=== PATIENT | female | born 1935 | race Caucasian/White ===

== ENCOUNTER 2018-06-24 09:37 | Emergency (ER) | payer MEDICARE ==
[2018-06-24 09:47] VITALS: BP 192/85
--- NOTE | 2018-06-24 10:20 | ED Physician Documentation ---
History of Present Illness - Stated complaint Stated Complaint: RASH - Chief complaint Chief Complaint: General - History obtained from History obtained from: Patient - History of Present Illness Timing: Other (1 month ago) Pain level max: 0 Pain level now: 0 - Additonal information Additional information: Patient is an 83-year-old female who complains of red streaks and itching for the past month. States it is mainly on the ankles and wrists along her hairline and her shirt collar areas. Nothing makes it better. It is itchy. No fevers. Is living in a cabin. Nothing makes it worse Review of Systems Throat: denies: Sore throat Respiratory: denies: Cough GI: denies: Abdominal Pain, Nausea, Vomiting, Diarrhea Musculoskeletal: denies: Neck pain, Back pain Neurologic: denies: Headache PD PAST MEDICAL HISTORY - Past Medical History Past Medical History: No - Past Surgical History Past Surgical History: No - Present Medications Home Medications: Ambulatory Orders Medication Instructions Recorded Confirmed Permethrin [Elimite] 60 gm TP ONCE #1 cream..g. 06/24/18 - Allergies Allergies/Adverse Reactions: Allergies Allergy/AdvReac Type Severity Reaction Status Date / Time Sulfa (Sulfonamide Allergy Unknown Verified 06/24/18 09:48 Antibiotics) - Living Situation Living Arrangement: reports: At home PD ED PE NORMAL - Vitals Vital signs reviewed: Yes - General General: Alert and oriented X 3, No acute distress - HEENT HEENT: Moist mucous membranes - Neck Neck: Supple, no meningeal sign - Cardiac Cardiac: RRR, Strong equal pulses - Respiratory Respiratory: No respiratory distress, Clear bilaterally - Abdomen Abdomen: Soft, Non tender - Derm Derm: Warm and dry, Other (Small papules and subcutaneous erythematous tracks along the wrist, ankles hairline along the forehead and neck. No abscesses. No pustules or vesicles.) - Neuro Neuro: Alert and oriented X 3 Results - Vitals Vitals: Vital Signs - 24 hr 06/24/18 09:43 Temperature 36.5 C Heart Rate 74 Respiratory 20 Rate Blood Pressure 192/85 H O2 Saturation 98 Oxygen O2 Source Room air PD MEDICAL DECISION MAKING - ED course Complexity details: considered differential, d/w patient ED course: Patient is an 83-year-old female with what appears to be a likely scabies infection. Will place on permethrin and follow-up with her doctor. Patient counseled regarding signs and symptoms for which I believe and urgent re- evaluation would be necessary. Patient with good understanding of and agreement to plan and is comfortable going home at this time This document was made in part using voice recognition software. While efforts are made to proofread this document, sound alike and grammatical errors may occur. Departure - Departure Disposition: Home, Self Care Clinical Impression: Scabies Condition: Good Instructions: ED Scabies Follow-Up: your,doctor in 2 weeks if not better [Other] Prescriptions: Permethrin [Elimite] 60 gm TP ONCE #1 cream..g. Comments: Use the medications as prescribed. Return if you worsen. Follow-up with your doctor.
== END 2018-06-24 10:22 | disposition home or self-care (01) ==
LOC: ED 09:37
DX: B86 Scabies (principal)
CPT/HCPCS: 99283

== ENCOUNTER 2021-05-30 07:00 | Outpatient (CLI) | payer MEDICARE | END 2021-05-30 23:59 | disposition home or self-care (01) | LOC: LAB 07:00 | PROVIDERS: ATTEND Physician Assistant Medical | DX: M54.5 Low back pain (principal) | CPT/HCPCS: 87077; 87086; 87181 ==

== ENCOUNTER 2022-03-09 19:05 | Emergency (ER) | payer MEDICARE, OTHER ==
[2022-03-09 19:14] VITALS: BP 183/92
--- NOTE | 2022-03-09 19:17 | ED Physician Documentation ---
History of Present Illness - Stated complaint Stated Complaint: BODY ACHES/BACK PX - Chief complaint Chief Complaint: General - History obtained from History obtained from: Patient, Family (family at bedside) - History of Present Illness Pain level now: 3 Improved by: no ameliorating factors Worsened by: no exacerbating factors - Additonal information Additional information: c/o few days of generalized myalgias and generalized headache, fatigue, cough. She also notes dyspnea and dysuria but these are chronic; she says she was recently evaluated outpatient by her primary care provider for recurrent dysuria and was prescribed estrogen cream (which she says she is not using) and that she tested negative for UTI. Unsure if fevers at home, did not check but patient says she felt like she had a fever; felt cold and got into hot shower to warm up, and has been having sweats/chills (although she also seems to indicate the sweats/chills are of a chronic/recurrent nature and not acute). Sick contact in that daughter in ED at bedside says she had similar symptoms (myalgias, headache, fatigue) recently Review of Systems Constitutional: reports: Chills, Myalgias, Fatigue, Sweats Cardiac: denies: Chest pain / pressure Respiratory: reports: Dyspnea, Cough. denies: Wheezing GI: denies: Abdominal Pain : reports: Dysuria (chronic). denies: Frequency Neurologic: reports: Generalized weakness, Headache. denies: Focal weakness, Numbness PD PAST MEDICAL HISTORY - Past Medical History Past Medical History: No - Past Surgical History Past Surgical History: No - Present Medications Home Medications: Ambulatory Orders Medication Instructions Recorded Confirmed Permethrin [Elimite] 60 gm TP ONCE #1 cream..g. 06/24/18 - Allergies Allergies/Adverse Reactions: Allergies Allergy/AdvReac Type Severity Reaction Status Date / Time Sulfa (Sulfonamide Allergy Unknown Verified 03/09/22 19:15 Antibiotics) - Living Situation Living Situation: reports: With family Living Arrangement: reports: At home - Social History Does the pt smoke?: No Smoking Status: Never smoker Does the pt drink ETOH?: No Does the pt have substance abuse?: No - Immunizations Immunizations are current?: Yes PD ED PE NORMAL - Vitals Vital signs reviewed: Yes - General General: Alert and oriented X 3, No acute distress, Well developed/nourished - HEENT HEENT: Moist mucous membranes, Pharynx benign - Neck Neck: Supple, no meningeal sign - Cardiac Cardiac: RRR - Respiratory Respiratory: No respiratory distress, Clear bilaterally - Abdomen Abdomen: Soft, Non tender - Derm Derm: Normal color, Warm and dry PD ED PE EXPANDED - Cardiac Cardiac: Murmur Present (2/6 SEAN left 2nd ICS) Results - Vitals Vitals: Vital Signs - 24 hr 03/09/22 03/09/22 03/09/22 19:09 21:14 21:48 Temperature 37.1 C Heart Rate 86 85 91 Respiratory 16 26 H Rate Blood Pressure 183/92 H O2 Saturation 97 100 97 Oxygen O2 Source Room air - Labs Labs: Laboratory Tests 03/09/22 03/09/22 19:55 19:55 Nasal Adenovirus (PCR) NOT DETECTED Nasal B. parapertussis DNA (PCR) NOT DETECTED Nasal Coronavir 229E PCR NOT DETECTED Nasal Coronavir HKU1 PCR NOT DETECTED Nasal Coronavir NL63 PCR NOT DETECTED Nasal Coronavir OC43 PCR NOT DETECTED Nasal Enterovir/Rhinovir PCR NOT DETECTED Nasal Influenza B PCR NOT DETECTED Nasal Influenza A PCR NOT DETECTED Nasal Parainfluen 1 PCR NOT DETECTED Nasal Parainfluen 2 PCR NOT DETECTED Nasal Parainfluen 3 PCR NOT DETECTED Nasal Parainfluen 4 PCR NOT DETECTED Nasal RSV (PCR) NOT DETECTED Nasal B.pertussis DNA PCR NOT DETECTED Nasal C.pneumoniae (PCR) NOT DETECTED Jm Human Metapneumo PCR NOT DETECTED Nasal M.pneumoniae (PCR) NOT DETECTED Nasal SARS-CoV-2 (PCR) DETECTED A Group A Strep Rapid Negative - Rads (name of study) chest xray Radiology: Prelim report reviewed, See rad report PD MEDICAL DECISION MAKING - ED course Complexity details: reviewed results, re-evaluated patient, considered differential, d/w patient, d/w family ED course: No concerning findings on chest xray and patient has 97% pulse ox on room air and NAD, breathing comfortably through nose (closed mouth) and speaking in full sentences. POSITIVE for COVID, given paxlovid. Results d/w patient, d/c home after return precautions discussed Departure - Departure Disposition: Home, Self Care Clinical Impression: COVID-19 Condition: Good Instructions: ED Viral Syndrome Follow-Up: Brandyn Zacarias MD [Primary Care Provider] - Comments: Take the antiviral medications as directed (Paxlovid; a five-day supply, which is the complete course of medication, has been given to you in the ER tonight to take home). Follow the CDC guidelines for isolation. These can be found by typing "CDC covid isolation" into [employer] and then clicking on the link that begins with https://www.cdc.gov). This page will give you means to determine when you can end your isolation. Discharge Date/Time: 03/09/22 21:48
[2022-03-09 20:11] LABS: RAPID STREP SCREEN Negative (Negative)
--- NOTE | 2022-03-09 20:31 | XRAY Report ---
PROCEDURE: Chest 2 View X-Ray INDICATIONS: cough, dyspnea TECHNIQUE: 2 views of the chest. COMPARISON: None. FINDINGS: Surgical changes and devices: None. Lungs and pleura: There is hyperinflation of the lungs with flattening of the hemidiaphragms compati ble with COPD. No definite acute airspace opacities. No pleural effusions or pneumothorax. Mediastinum: Mediastinal contours are normal. Heart size is normal. Bones and chest wall: No suspicious bony abnormalities. Soft tissues appear unremarkable. IMPRESSION: 1. No definite evidence of pneumonia. 2. Findings compatible with COPD. Reviewed by: Titus Segovia MD on 03/09/2022 8:29 PM PDT Approved by: Titus Segovia MD on 03/09/2022 8:29 PM PDT Station ID: [id number]
[2022-03-09 20:50] LABS: CORONAVIRUS 229E-RESP PCR NOT DETECTED; CORONAVIRUS HKU1-RESP PCR NOT DETECTED; CORONAVIRUS NL63-RESP PCR NOT DETECTED; CORONAVIRUS OC43-RESP PCR NOT DETECTED
[2022-03-09 20:52] LABS: B. PARAPERTUSSIS- RESP PCR PAN NOT DETECTED; B. PERTUSSIS- RESP PCR PANEL NOT DETECTED; C. PNEUMONIAE- RESP PCR PANEL NOT DETECTED; HUMAN METAPNEUMOVIRUS NOT DETECTED; INFLUENZA A- RESP PCR PANEL NOT DETECTED; INFLUENZA B - RESP PCR PANEL NOT DETECTED; M. PNEUMONIAE- RESP PCR PANEL NOT DETECTED; PARAINFLUENZA VIRUS 1 NOT DETECTED; PARAINFLUENZA VIRUS 2 NOT DETECTED; PARAINFLUENZA VIRUS 3 NOT DETECTED; PARAINFLUENZA VIRUS 4 NOT DETECTED; RHINOVIRUS/ENTEROVIRUS NOT DETECTED; RSV- RESP PCR PANEL NOT DETECTED; SARS-CoV-2 -RESP PCR PANEL DETECTED
[2022-03-09] MEDS ORDERED: NIRMATRELVIR/RITONAVIR PREPACK PO STA (21:16)
[2022-03-09] MEDS ORDERED: IBUPROFEN 400 MG TABLET PO STA (21:23)
== END 2022-03-09 21:48 | disposition home or self-care (01) ==
LOC: ED 19:05
DX: U07.1 COVID-19 (principal)
CPT/HCPCS: 71046; 87070; 87430; 87633; 99282; 99284; A9270; J3490

== ENCOUNTER 2022-12-27 12:47 | Emergency (ER) | payer MEDICARE, OTHER ==
--- NOTE | 2022-12-27 13:31 | ED Physician Documentation ---
PD HPI ABD PAIN - Stated complaint Stated Complaint: ABD PX/NAUSEA - Chief complaint Chief Complaint: Abd Pain - History obtained from History obtained from: Patient - Additional information Additional information: Is an 87-year-old female presenting for evaluation of burning pain in her stomach that radiates into her chest that is been present for the past 7 to 8 days. Patient reports a history of GERD and used to be on Prilosec but has not been using it recently. She did take 1 dose without any improvement in her symptoms. She denies any change to her diet. She did try a dose of Tums which also did not help her. She denies radiation to the pain elsewhere.Her pain is worse when laying down at night or after eating.She otherwise denies pain elsewhere in the chest or abdomen. SheDenies shortness of breath, nausea, vomiting, diarrhea.She denies any known history of coronary artery disease and does not take any medications for blood pressure, diabetes or hyperlipidemia.He has a prior history of an appendectomy. Her last bowel movement was yesterday. Review of Systems Constitutional: denies: Fever Cardiac: denies: Chest pain / pressure Respiratory: denies: Dyspnea GI: reports: Abdominal Pain. denies: Nausea, Vomiting, Diarrhea : reports: Dysuria Musculoskeletal: denies: Back pain Neurologic: denies: Headache PD PAST MEDICAL HISTORY - Past Medical History Musculoskeletal: Osteoarthritis - Past Surgical History Past Surgical History: No - Present Medications Home Medications: Ambulatory Orders Medication Instructions Recorded Confirmed Permethrin [Elimite] 60 gm TP ONCE #1 cream..g. 06/24/18 Nitrofurantoin [Macrobid] 100 mg PO BID #10 cap 04/19/22 - Allergies Allergies/Adverse Reactions: Allergies Allergy/AdvReac Type Severity Reaction Status Date / Time Sulfa (Sulfonamide Allergy Unknown Verified 12/27/22 13:13 Antibiotics) - Social History Does the pt smoke?: No Smoking Status: Never smoker Does the pt drink ETOH?: No Does the pt have substance abuse?: No - Immunizations Immunizations are current?: Yes PD ED PE NORMAL - General General: Alert and oriented X 3, No acute distress, Well developed/nourished - HEENT HEENT: Atraumatic - Neck Neck: Supple, no meningeal sign - Cardiac Cardiac: RRR, No murmur - Respiratory Respiratory: No respiratory distress, Clear bilaterally - Abdomen Abdomen: Soft, Non tender, Non distended - Derm Derm: Warm and dry - Neuro Neuro: Normal speech Results - Vitals Vitals: Vital Signs - 24 hr 12/27/22 12/27/22 12/27/22 13:07 13:55 15:16 Temperature 36.5 C Heart Rate 83 69 70 Respiratory 16 16 18 Rate Blood Pressure 180/125 H 200/82 H 182/100 H O2 Saturation 97 100 98 Oxygen O2 Source Room air - EKG (time done) 1343 EKG releavant findings:: EKG personally interpreted by author of this note. Relevant findings are: Rate 68, NSR, no STEMI; [id number] Rate: Rate (enter#) (68) Rhythm: NSR Intervals: No: Prolonged QT Ischemia: No: ST elevation c/w ischemia - Labs Labs: Laboratory Tests 12/27/22 12/27/22 12/27/22 13:34 13:34 13:34 WBC 4.7 L RBC 4.71 Hgb 13.4 Hct 42.4 MCV 90.0 MCH 28.5 MCHC 31.6 L RDW 13.4 Plt Count 201 MPV 9.2 Neut # (Auto) 3.0 Lymph # (Auto) 1.2 L [place] # (Auto) 0.4 Eos # (Auto) 0.2 Baso # (Auto) 0.0 Absolute Nucleated RBC 0.00 Nucleated RBC % 0.0 Sodium 140 Potassium 4.0 Chloride 106 Carbon Dioxide 26 Anion Gap 8.0 BUN 18 Creatinine 0.8 Estimated GFR (MDRD) 68 L Glucose 95 Calcium 9.1 Total Bilirubin 0.6 AST 20 ALT 16 Alkaline Phosphatase 67 Troponin I High Sens 13.3 Total Protein 6.8 Albumin 3.8 Globulin 3.0 Albumin/Globulin Ratio 1.3 Lipase 35 Urine Color Urine Clarity Urine pH Ur Specific [place] Urine Protein Urine Glucose (UA) Urine Ketones Urine Occult Blood Urine Nitrite Urine Bilirubin Urine Urobilinogen Ur Leukocyte Esterase Ur Microscopic Review Urine Culture Comments 12/27/22 15:03 WBC RBC Hgb Hct MCV MCH MCHC RDW Plt Count MPV Neut # (Auto) Lymph # (Auto) [place] # (Auto) Eos # (Auto) Baso # (Auto) Absolute Nucleated RBC Nucleated RBC % Sodium Potassium Chloride Carbon Dioxide Anion Gap BUN Creatinine Estimated GFR (MDRD) Glucose Calcium Total Bilirubin AST ALT Alkaline Phosphatase Troponin I High Sens Total Protein Albumin Globulin Albumin/Globulin Ratio Lipase Urine Color YELLOW Urine Clarity CLEAR Urine pH 6.0 Ur Specific [place] 1.025 Urine Protein NEGATIVE Urine Glucose (UA) NEGATIVE Urine Ketones NEGATIVE Urine Occult Blood NEGATIVE Urine Nitrite NEGATIVE Urine Bilirubin NEGATIVE Urine Urobilinogen 0.2 (NORMAL) Ur Leukocyte Esterase NEGATIVE Ur Microscopic Review NOT INDICATED Urine Culture Comments NOT INDICATED PD Medical Decision Making - ED course Complexity details: reviewed results, re-evaluated patient, d/w patient, d/w family ED course: Pt with epigastric pain. BP elevated but other VS stable. Workup included CBC, CMP, lipase, troponin, EKG and chest XR which I reviewed and without significant findings. Abdominal exam is benign. UA negative for infection. Pt feeling better after GI cocktail. Given duration of symptoms of days with negative troponin and pain worse with laying flat and eating, feel ACS is less likely. Pt feels better and would like to go home with plan to continue Prilosec. Daughter also at bedside. Understand need for close follow up with PCP and concerning symptoms to return for. Departure - Departure Disposition: 01 Home, Self Care Clinical Impression: Epigastric abdominal pain, Heartburn symptom, Elevated blood pressure reading Condition: Stable Instructions: ED GERD Comments: Your electrolytes and testing for your heart today are normal. Your urine does not show any infection. Your symptoms could be related to heartburn I would rec ommend continuing with Prilosec and having close follow-up with your PCP. Your blood pressure has been quite elevated today. We do not typically start blood pressure medication And thus you are having certain symptoms or abnormalities on your lab testing. Please call Dr. Zacarias's office on Thursday for close follow- up. Discharge Date/Time: 12/27/22 15:36
[2022-12-27 13:39] LABS: BASOPHILS % (AUTO) 0.4 %; EOSINOPHILS # (AUTO) 0.2 10^3/uL (0.0-0.7); EOSINOPHILS % (AUTO) 3.2 %; HCT - HEMATOCRIT 42.4 % (37.0-47.0); HGB - HEMOGLOBIN 13.4 g/dL (12.0-16.0); LYMPHOCYTES # (AUTO) 1.2 10^3/uL (1.5-3.5); MEAN CORPUSCULAR HEMOGLOBIN 28.5 pg (27.0-31.0); MEAN CORPUSCULAR HGB CONC 31.6 g/dL (32.0-36.0); MEAN PLATELET VOLUME 9.2 fL (7.9-10.8); MONOCYTES # (AUTO) 0.4 10^3/uL (0.0-1.0); MONOCYTES % (AUTO) 7.9 %; NEUTROPHILS % (AUTO) 63.3 %; PLT - PLATELET COUNT 201 10^3/uL (130-450); RED BLOOD COUNT 4.71 10^6/uL (4.20-5.40); RED CELL DISTRIBUTION WIDTH 13.4 % (12.0-15.0); WHITE BLOOD COUNT 4.7 x10^3/uL (4.8-10.8)
--- NOTE | 2022-12-27 13:44 | XRAY Report ---
PROCEDURE: Chest 1 View X-Ray INDICATIONS: heartburn TECHNIQUE: One view of the chest was acquired. COMPARISON: Chest x-ray 03/09/2022 FINDINGS: Surgical changes and devices: None. Lungs and pleura: No pleural effusions or pneumothorax. Lungs are clear. Mediastinum: Mediastinal contours appear normal. Heart size is mildly enlarged. Bones and chest wall: No suspicious bony lesions. Overlying soft tissues appear unremarkable. IMPRESSION: No acute pulmonary process. Reviewed by: Sonja Alvarenga MD on 12/27/2022 1:43 PM PDT Approved by: Sonja Alvarenga MD on 12/27/2022 1:43 PM PDT Station ID: [id number]
[2022-12-27 14:03] LABS: ALBUMIN 3.8 g/dL (3.2-5.5); ALBUMIN/GLOBULIN RATIO 1.3 (1.0-2.2); BILIRUBIN,TOTAL 0.6 mg/dL (0.2-1.0); CALCIUM 9.1 mg/dL (8.5-10.3); CREATININE 0.8 mg/dL (0.4-1.0); TOTAL PROTEIN 6.8 g/dL (6.7-8.2)
[2022-12-27] MEDS: MAG HYDROX/AL HYDROX/SIMETH 30 ML UDC PO STA (14:36)
[2022-12-27] MEDS: LIDOCAINE VISCOUS 2% 15 ML UDC MM STA (14:36)
[2022-12-27 15:10] LABS: BILIRUBIN,URINE NEGATIVE (NEGATIVE); CLARITY,URINE CLEAR (CLEAR); GLUCOSE, URINE (UA) NEGATIVE (NEGATIVE); KETONES,URINE (UA) NEGATIVE (NEGATIVE); LEUKOCYTE ESTERASE, URINE NEGATIVE (NEGATIVE); NITRITE,URINE NEGATIVE (NEGATIVE); OCCULT BLOOD,URINE NEGATIVE (NEGATIVE); PROTEIN,URINE NEGATIVE (NEGATIVE); UROBILINOGEN,URINE 0.2 (NORMAL) E.U./dL (NORMAL)
[2022-12-27 15:17] VITALS: BP 182/100
== END 2022-12-27 15:36 | disposition home or self-care (01) ==
LOC: ED 12:47
DX: R10.13 Epigastric pain (principal); R03.0 Elevated blood-pressure reading, without diagnosis of hypertension; R30.0 Dysuria
CPT/HCPCS: 36415; 71045; 80053; 81003; 83690; 84484; 85025; 93005; 99283; 99284; A9270; 81001; 87086

== ENCOUNTER 2023-02-17 13:30 | Outpatient (CLI) | payer MEDICARE, OTHER | END 2023-02-17 23:59 | disposition EMS.NT | LOC: EMS 13:30 | DX: R30.9 Painful micturition, unspecified (principal) ==

== ENCOUNTER 2023-02-17 14:36 | Emergency (ER) | payer MEDICARE, OTHER ==
--- NOTE | 2023-02-17 15:04 | ED Physician Documentation ---
History of Present Illness - Stated complaint Stated Complaint: FEMALE - Chief complaint Chief Complaint: UTI - History obtained from History obtained from: Patient - Additonal information Additional information: 88-year-old female with past medical history of recurrent dysuria symptoms though apparently frequently does not have UTI on lab, presents with dysuria. She states symptoms occur every 6 months to a year. She states that they often tell her she did not have an infection but she states she gets relief when she is put on antibiotics. She does have a history of bladder prolapse and it was recommended in the past that she undergo a sling procedure but she did not want to do so, she does plan to follow-up with her loan originator about this however. She has been experiencing dysuria for the last couple of days with some mild increasing confusion, she has not had any flank pain, no fever or chills, no nausea or vomiting. She is tolerating p.o. well and states she drinks a copious amount of water throughout the day. Review of Systems Constitutional: reports: Reviewed and negative Eyes: reports: Reviewed and negative Ears: reports: Reviewed and negative Nose: reports: Reviewed and negative Throat: reports: Reviewed and negative Cardiac: reports: Reviewed and negative Respiratory: reports: Reviewed and negative GI: reports: Reviewed and negative : reports: Dysuria, Frequency. denies: Hesitancy, Unable to Void, Incontinent, Hematuria, Discharge Skin: reports: Reviewed and negative Musculoskeletal: reports: Reviewed and negative Neurologic: reports: Reviewed and negative PD PAST MEDICAL HISTORY - Past Medical History Cardiovascular: Hypertension Musculoskeletal: Osteoarthritis - Past Surgical History Past Surgical History: No - Present Medications Home Medications: Ambulatory Orders Medication Instructions Recorded Confirmed Permethrin [Elimite] 60 gm TP ONCE #1 cream..g. 06/24/18 Nitrofurantoin [Macrobid] 100 mg PO BID #10 cap 04/19/22 Phenazopyridine HCl [Pyridium] 200 mg PO TID PRN #6 tablet 02/17/23 cephALEXin [Keflex] 500 mg PO BID 3 Days #6 cap 02/17/23 - Allergies Allergies/Adverse Reactions: Allergies Allergy/AdvReac Type Severity Reaction Status Date / Time Sulfa (Sulfonamide Allergy Unknown Verified 12/27/22 13:13 Antibiotics) - Social History Does the pt smoke?: No Smoking Status: Never smoker Does the pt drink ETOH?: No Does the pt have substance abuse?: No - Immunizations Immunizations are current?: Yes Results - Vitals Vitals: Vital Signs - 24 hr 02/17/23 14:44 Temperature 36.7 C Heart Rate 66 Respiratory 18 Rate Blood Pressure 213/63 H O2 Saturation 99 Oxygen O2 Source Room air - Labs Labs: Laboratory Tests 02/17/23 02/17/23 02/17/23 15:07 15:07 15:07 WBC 6.6 RBC 4.81 Hgb 13.9 Hct 43.5 MCV 90.4 MCH 28.9 MCHC 32.0 RDW 13.4 Plt Count 217 MPV 9.1 Neut # (Auto) 4.6 Lymph # (Auto) 1.2 L [place] # (Auto) 0.5 Eos # (Auto) 0.2 Baso # (Auto) 0.0 Absolute Nucleated RBC 0.00 Nucleated RBC % 0.0 Sodium 140 Potassium 4.1 Chloride 104 Carbon Dioxide 28 Anion Gap 8.0 BUN 20 Creatinine 1.0 Estimated GFR (MDRD) 52 L Glucose 97 Calcium 9.1 Total Bilirubin 0.6 AST 22 ALT 20 Alkaline Phosphatase 80 Total Protein 7.2 Albumin 4.0 Globulin 3.2 Albumin/Globulin Ratio 1.3 Lipase 42 Urine Color YELLOW Urine Clarity CLEAR Urine pH 7.0 Ur Specific [place] 1.020 Urine Protein NEGATIVE Urine Glucose (UA) NEGATIVE Urine Ketones NEGATIVE Urine Occult Blood NEGATIVE Urine Nitrite NEGATIVE Urine Bilirubin NEGATIVE Urine Urobilinogen 0.2 (NORMAL) Ur Leukocyte Esterase NEGATIVE Ur Microscopic Review NOT INDICATED Urine Culture Comments NOT INDICATED PD Medical Decision Making - ED course Complexity details: reviewed old records, reviewed results, re-evaluated patient, considered differential, d/w patient, d/w family ED course: 88-year-old female presents with dysuria, Nicko and concern for UTI. She has had similar symptoms every 6 months or so for the last number of years. It sounds as though she often has a negative urinalysis but believes that she gets relief when she is started on antibiotics. She is well-appearing here on physical exam with stable vital signs, she has no CVAT or reproducible abdominal tenderness. Her labs are stable including CBC, CMP and urinalysis. Urinalysis not suggestive of infection however given patient's symptoms, I am going to treat with a short course of Keflex and Pyridium. Her symptoms may be due to a mild cystitis or overactive bladder, or due to her bladder prolapse. She was advised to follow-up with her PCP and loan originator for these issues, she may benefit from being on some medication for overactive bladder and may benefit from a pessary or other treatment for her bladder prolapse. At this time she does not require hospitalization and is stable for discharge home. She was encouraged to follow-up however if she had new or worsening symptoms. Departure - Departure Disposition: Home, Self Care Clinical Impression: Cystitis Condition: Good Instructions: ED UTI Cystitis Female Prescriptions: cephALEXin [Keflex] 500 mg PO BID 3 Days #6 cap Phenazopyridine HCl [Pyridium] 200 mg PO TID PRN #6 tablet PRN Reason: dysuria Comments: Your labs today are reassuring, you do not appear dehydrated and your kidney function is normal. There is no obvious sign of infection on your urinalysis today however I think reasonable to treat given your symptoms. I have given you 3 days of antibiotic called Keflex as well as a medication to reduce bladder spasms called Pyridium. Please continue to drink plenty of water and follow-up with your primary doctor if you have ongoing Symptoms or return to the ER if worsening. I do think it is a good idea to see a loan originator as we discussed for your bladder prolapse. This can also cause The symptoms you are experiencing today. Medications were sent to [facility] in [place].
[2023-02-17 15:14] LABS: BILIRUBIN,URINE NEGATIVE (NEGATIVE); GLUCOSE, URINE (UA) NEGATIVE (NEGATIVE); KETONES,URINE (UA) NEGATIVE (NEGATIVE); LEUKOCYTE ESTERASE, URINE NEGATIVE (NEGATIVE); NITRITE,URINE NEGATIVE (NEGATIVE); OCCULT BLOOD,URINE NEGATIVE (NEGATIVE); PROTEIN,URINE NEGATIVE (NEGATIVE); UROBILINOGEN,URINE 0.2 (NORMAL) E.U./dL (NORMAL)
[2023-02-17 15:17] LABS: CLARITY,URINE CLEAR (CLEAR)
[2023-02-17 15:19] LABS: BASOPHILS % (AUTO) 0.3 %; EOSINOPHILS # (AUTO) 0.2 10^3/uL (0.0-0.7); EOSINOPHILS % (AUTO) 3.4 %; HCT - HEMATOCRIT 43.5 % (37.0-47.0); HGB - HEMOGLOBIN 13.9 g/dL (12.0-16.0); LYMPHOCYTES # (AUTO) 1.2 10^3/uL (1.5-3.5); LYMPHOCYTES % (AUTO) 18.9 %; MEAN CORPUSCULAR HEMOGLOBIN 28.9 pg (27.0-31.0); MEAN CORPUSCULAR VOLUME 90.4 fL (81.0-99.0); MEAN PLATELET VOLUME 9.1 fL (7.9-10.8); MONOCYTES # (AUTO) 0.5 10^3/uL (0.0-1.0); NEUTROPHILS # (AUTO) 4.6 10^3/uL (1.5-6.6); NEUTROPHILS % (AUTO) 69.9 %; PLT - PLATELET COUNT 217 10^3/uL (130-450); RED BLOOD COUNT 4.81 10^6/uL (4.20-5.40); RED CELL DISTRIBUTION WIDTH 13.4 % (12.0-15.0); WHITE BLOOD COUNT 6.6 x10^3/uL (4.8-10.8)
[2023-02-17 15:24] LABS: ALBUMIN/GLOBULIN RATIO 1.3 (1.0-2.2); BILIRUBIN,TOTAL 0.6 mg/dL (0.2-1.0); CALCIUM 9.1 mg/dL (8.5-10.3); POTASSIUM 4.1 mmol/L (3.5-5.0); TOTAL PROTEIN 7.2 g/dL (6.7-8.2)
[2023-02-17 16:09] VITALS: BP 188/81
== END 2023-02-17 16:14 | disposition home or self-care (01) ==
LOC: ED 14:36
DX: N30.90 Cystitis, unspecified without hematuria (principal); I10 Essential (primary) hypertension
CPT/HCPCS: 36415; 80053; 81001; 81003; 83690; 85025; 87086; 99283; 99284

== ENCOUNTER 2023-03-29 17:43 | Outpatient (CLI) | payer MEDICARE, OTHER | END 2023-03-29 23:59 | disposition EMS.NT | LOC: EMS 17:43 | DX: M25.561 Pain in right knee (principal); R41.0 Disorientation, unspecified ==

== ENCOUNTER 2024-01-18 12:25 | Emergency (ER) | payer MEDICARE, OTHER ==
[2024-01-18 14:36] VITALS: BP 192/60; O2SAT 96
--- NOTE | 2024-01-18 14:38 | CT Report ---
PROCEDURE: Chest WO INDICATIONS: fall, R rib pain TECHNIQUE: A CT scan of the chest was performed. Intravenous contrast media was not administered. Images were re corded and evaluated at appropriate window settings. Reformats: axial MIP of the chest, coronal and s agittal. For radiation dose reduction, the following was used: automated exposure control, adjustment of mA and/or kV according to patient size. COMPARISON: Radiograph 12/27/2022 FINDINGS: Image quality: Diagnostic Lungs and pleura:Moderate emphysematous changes. Scattered scarring and atelectasis. No dense airspac e disease. No pleural effusions. No pneumothorax. 8 mm nodular opacity with a central cavitation vers us central emphysema is seen at the left apex (/) another nodule is seen in the medial right upper lobe measuring 9 to 10 mm (7/40). Mediastinum, heart, and esophagus: No evidence of mediastinal hematoma. No pericardial effusion. Mild distal esophageal wall thickening, nonspecific. There are mitral annular, atherosclerotic, and coron hakan calcifications. No pathologic lymph nodes by size criteria. Chest wall and thyroid: Unremarkable Upper abdomen: No gross abnormality on these noncontrast images Bones: Possible buckling of the anterolateral third and fourth ribs on the right. No displaced rib fr acture are identified. Degenerative changes are present. IMPRESSION: No displaced rib fracture. Possible nondisplaced buckling of the third and fourth ribs on the right. There are degenerative spine changes. No pneumothorax. No significant intrathoracic traumatic injury on this noncontrast study. Multiple lung nodules as described above measuring up to 10 mm in the medial left upper lobe. Conside r 3 month follow-up given patient's presumed risk factors (there is moderate emphysema.). Other findings above. Reviewed by: Trell Kim MD on 01/18/2024 2:36 PM PDT Approved by: Trell Kim MD on 01/18/2024 2:36 PM PDT Station ID: [id number]
--- NOTE | 2024-01-18 14:41 | CT Report ---
PROCEDURE: Pelvis WO INDICATIONS: fall, R hip/pelvis pain TECHNIQUE: Noncontrast 3 mm axial sections acquired through the bony pelvis, with coronal and sagittal reformatt ing. For radiation dose reduction, the following was used: automated exposure control, adjustment of mA and/or kV according to patient size. COMPARISON: None. FINDINGS: Image quality: Diagnostic Bones: Left hip arthroplasty. There is surrounding metallic artifact. Moderate right hip degenerative changes. There is calcific tendinopathy. The pelvic ring appears intact. Sacroiliac and lower lumbar degenerative changes are partially seen. No acute displaced fracture. No pubic diastases. No disloca tion. Soft tissues: Intrapelvic structures not well assessed on this noncontrast nondedicated study. There are colonic diverticula. Bladder is distended. The uterus is absent. No pathologic ascites/hemoperito neum in the [id number]. IMPRESSION: Moderate right hip degenerative changes. No acute displaced fracture or dislocation. Left hip arthrop lasty is seen. Other findings above. If there is high concern for further derangement, consider MRI evaluation. Reviewed by: Terll Kim MD on 01/18/2024 2:39 PM PDT Approved by: Trell Kim MD on 01/18/2024 2:39 PM PDT Station ID: [id number]
--- NOTE | 2024-01-18 14:57 | ED Physician Documentation ---
History of Present Illness - Stated complaint Stated Complaint: GLF/HIP PX - Chief complaint Chief Complaint: Trauma Ext - History obtained from History obtained from: Patient, Family, EMS - History of Present Illness Timing: Yesterday - Additonal information Additional information: Patient is an 89-year-old female who has a history of dementia, she lives at a nursing facility. She fell yesterday, did not have any injuries. She fell again last night and again had no injuries. Today she stated that her right ribs and right hip were hurting. She was still able to walk. They gave her Tylenol but she said that she was still having pain so she was brought into the emergency department with her daughter. Patient is unable to give a number of pain here. No head injury on either fall. Worse with movement, better with rest. Review of Systems Unable to obtain: Dementia PD PAST MEDICAL HISTORY - Past Medical History Past Medical History: Yes Cardiovascular: Hypertension Neuro: Dementia Musculoskeletal: Osteoarthritis - Past Surgical History Past Surgical History: No - Allergies Allergies/Adverse Reactions: Allergies Allergy/AdvReac Type Severity Reaction Status Date / Time Sulfa (Sulfonamide Allergy Unknown Verified 01/18/24 12:33 Antibiotics) - Social History Does the pt smoke?: No Smoking Status: Never smoker Does the pt drink ETOH?: No Does the pt have substance abuse?: No - Immunizations Immunizations are current?: Yes PD ED PE NORMAL - Vitals Vital signs reviewed: Yes - General General: No acute distress, Well developed/nourished, Other (Alert, oriented to person and place, not to time) - HEENT HEENT: Atraumatic, PERRL, EOMI, Moist mucous membranes, Pharynx benign - Neck Neck: Supple, no meningeal sign, No bony TTP - Cardiac Cardiac: RRR, Strong equal pulses - Respiratory Respiratory: No respiratory distress, Clear bilaterally, Other (TTP R ribs posterolateral 6-8, no crepitus. no ecchymosis.) - Abdomen Abdomen: Soft, Non tender, Non distended - Back Back: No spinal TTP (No midline tenderness to palpation or percussion. No step- off or deformity.) - Derm Derm: Warm and dry - Extremities Extremities: No deformity, Other (Mild tenderness to palpation over the right hip, greater trochanter area. Has mild pain with range of motion of the right hip. Left hip is normal. No deformity. No external rotation or shortening of the right leg. Neurovascular intact.) - Neuro Neuro: Other (alert, at mental baseline) Eye Opening: Spontaneous Motor: Obeys Commands Verbal: Confused GCS Score: 14 - Psych Psych: Normal mood, Normal affect Results - Vitals Vitals: Vital Signs - 24 hr 01/18/24 01/18/24 12:35 14:28 Temperature 36.1 C L 36.5 C Heart Rate 72 75 Respiratory 14 16 Rate Blood Pressure 184/81 H 192/60 H O2 Saturation 98 96 Oxygen O2 Source Room air - Rads (name of study) chest CT Relevant Findings:: Final report received, See rad report pelvis CT Relevant Findings:: Final report received, See rad report PD Medical Decision Making - ED course Complexity details: reviewed results, re-evaluated patient, considered differential, d/w patient, d/w family ED course: 89-year-old female status post a fall yesterday at her shelter. She has dementia. She is mainly complaining of right rib pain and right hip pain. No acute findings on CT scan of either site. Ambulating well here. Pain well- controlled with Tylenol. No head or neck pain. Did not strike her head on either fall. Not on blood thinners. No indication for further workup at this time. Family counseled regarding signs and symptoms for which I believe and urgent re-evaluation would be necessary. Family with good understanding of and agreement to plan and is comfortable going home at this time This document was made in part using voice recognition software. While efforts are made to proofread this document, sound alike and grammatical errors may occur. Departure - Departure Disposition: 01 Home, Self Care Clinical Impression: Rib pain on right side, Fall from ground level Condition: Good Instructions: ED Mechanical Fall, ED Contusion Rib Follow-Up: Brandyn Zacarias MD [Primary Care Provider] - Comments: Please follow-up with your doctor for further care. Please return if you worsen. Your CT scans do not show any evidence of acute traumatic injuries. You can use Tylenol as needed for pain. A CT scan of your chest and pelvis was performed today. The CT scan of your chest does show some lung nodules in the left upper lobe. It is recommended that you have a 3-month follow-up with your doctor regarding this. Forms: PCP List Discharge Date/Time: 01/18/24 15:15
[2024-01-18] MEDS: ACETAMINOPHEN 325 MG TABLET PO STA (15:13)
== END 2024-01-18 15:15 | disposition home or self-care (01) ==
LOC: EDUNIT# → ED 12:25
DX: M25.551 Pain in right hip (principal); R07.81 Pleurodynia; W18.30XA Fall on same level, unspecified, initial encounter; Y92.129 Unspecified place in nursing home as the place of occurrence of the external cause; F03.90 Unspecified dementia, unspecified severity, without behavioral disturbance, psychotic disturbance, mood disturbance, and anxiety
CPT/HCPCS: 71250; 72192; 99284; A9270